=== PATIENT | male | born 1955 | race Caucasian/White ===

== ENCOUNTER 2016-11-26 14:42 | Outpatient (CLI) | payer OTHER ==
--- NOTE | 2016-11-26 16:20 | DIAGNOSTIC IMAGING REPORT ---
PROCEDURE: US SOFT TISSUE ANYWHERE INDICATION: SKIN MASS (LEFT SIDE JAW) TECHNIQUE: Arias scale and color duplex ultrasound of the left side of the face. COMPARISON: None. FINDINGS: There is a 1.6 x 1.4 x 1.2 cm hypoechoic heterogeneous well marginated hypoechoic mass in the anterior aspect of the left parotid gland. IMPRESSION: 1. Left parotid mass versus abnormal lymph node. Recommend CT scan with IV contrast for further evaluation 2. Results discussed with Dr. Ramos
== END 2016-11-26 23:00 ==
LOC: US SRH 14:42
DX: R22.9 Localized swelling, mass and lump, unspecified (principal)

== ENCOUNTER 2016-11-27 13:42 | Outpatient (CLI) | payer OTHER ==
--- NOTE | 2016-11-29 00:32 | DIAGNOSTIC IMAGING REPORT ---
PROCEDURE: CT SOFT TISSUE NECK WITH CONT INDICATION: LT PAROTID MASS TECHNIQUE: 100 ml of Isovue 300 injected intravenously and axial images were obtained from the skull base through the upper mediastinum with sagittal and coronal reformations. In addition, angled axial oblique images were obtained (avoiding dental hardware). COMPARISON: Ultrasound 11/26/2016 FINDINGS: 1.7 cm mildly enhancing mass in the anterior inferior aspect of the right parotid gland. Prominent left digastric and cervical lymph nodes, largest 9 mm short axis. Right parotid and submandibular lymph nodes are normal. Mildly heterogeneous right thyroid lobe with bilateral coarse calcifications. Mild bilateral carotid calcific atherosclerosis. Normal airway. Lung apices are clear. Minor bilateral maxillary sinus disease. Moderate C5-6 degenerative changes. IMPRESSION: 1. 1.7 cm left parotid gland mass. Recommend ultrasound guided biopsy/ENT consultation. All CT scans at this facility use dose modulation, iterative reconstruction, and/or weight-based dosing when appropriate to reduce radiation dose to as low as reasonably achievable.
== END 2016-11-27 23:00 ==
LOC: CT SRH 13:42
DX: K11.8 Other diseases of salivary glands (principal)

== ENCOUNTER 2016-12-06 13:44 | Outpatient (CLI) | payer OTHER ==
--- NOTE | 2016-12-06 15:35 | DIAGNOSTIC IMAGING REPORT ---
PROCEDURE: US ST NECK/THORAX BIOPSY INDICATION: LEFT PAROTID MASS TECHNIQUE: Informed consent was obtained and the patient was informed of the usual risks and complications including infection, bleeding, and allergy. Right lateral position. COMPARISON: Comparison is made to CT soft tissue neck (11/27/2016) and ultrasound of the neck (11/26/2016). FINDINGS: Following sterile preparation and 1% lidocaine local anesthetic, ultrasound guidance was utilized to place a 16 gauge coaxial needle into the anterior tory parotid region and directed into a 1.7 cm anterior left parotid mass. Five core biopsy samples were obtained with a 20-gauge biopsy instrument. Samples were placed in formalin and transferred to the laboratory. The patient tolerated the procedure reasonably well and was discharged home in satisfactory condition with instructions to call for any untoward symptoms. IMPRESSION: 1. Successful ultrasound-guided biopsy of left parotid mass.
== END 2016-12-06 20:44 | disposition home or self-care (01) ==
LOC: US SRH 13:44
PROC: 0J943ZX Drainage of Right Neck Subcutaneous Tissue and Fascia, Percutaneous Approach, Diagnostic (ICD-10-PCS; principal; 2016-12-06)
PROC: BG43ZZZ Ultrasonography of Parathyroid Glands (ICD-10-PCS; principal; 2016-12-06)
DX: D11.9 Benign neoplasm of major salivary gland, unspecified (principal)
CPT/HCPCS: 82445